=== PATIENT | male | born 1990 | race Caucasian/White ===

== ENCOUNTER 2019-03-24 22:11 | Emergency (ER) | payer MEDICAID ==
[~2019-03-24] VITALS: Ht 157.5 cm; Wt 83.9 kg
[2019-03-24 22:30] VITALS: BP 150/92
--- NOTE | 2019-03-24 22:30 | NUR ---
PT TRIAGED AND BROUGHT TO BED AT THIS TIME
--- NOTE | 2019-03-24 23:05 | NUR ---
28/M PRESENTS TO ED, C/O 07/15 R UPPER WRIGHT PAIN, S/P JUMPING WHILE PLAYING SOCCER, X3 HRS AGO. R WRIGHT WITHOUT OBVIOUS DEFORMITY, SWELLING OR BRUISING, TENDER TO TOUCH, +CMS. PT AOX4, AMBULATORY, GCS 15, SKIN NORMAL WARM AND DRY, RR EVEN AND UNLABORED. DENIES MED HX, RX OR OTC.
[2019-03-24] MEDS ORDERED: IBUPROFEN 800 MG TAB PO ONE (23:50)
[2019-03-25 00:12] VITALS: BP 141/87
== END 2019-03-25 00:07 | disposition home or self-care (01) ==
LOC: MED 22:11
DX: S80.01XA Contusion of right knee, initial encounter (principal); W19.XXXA Unspecified fall, initial encounter; Y93.66 Activity, soccer; Y92.89 Other specified places as the place of occurrence of the external cause; Y99.8 Other external cause status
CPT/HCPCS: 73590; 99283; Q0092